=== PATIENT | female | born 1990 | race African-American/Black ===

== ENCOUNTER 2019-04-10 08:59 | Emergency (ER) | payer OTHER ==
[~2019-04-10] VITALS: Ht 177.8 cm; Wt 84.6 kg
[2019-04-10 09:07] VITALS: Ht 177.8 cm; Wt 84.6 kg
[2019-04-10 10:15] VITALS: BP 115/78
== END 2019-04-10 10:15 | disposition home or self-care (01) ==
LOC: ED 08:59
DX: B34.9 Viral infection, unspecified (principal)

== ENCOUNTER 2019-04-27 15:36 | Emergency (ER) | payer OTHER ==
[~2019-04-27] VITALS: Ht 177.8 cm; Wt 81.2 kg
[2019-04-27 15:45] VITALS: Ht 177.8 cm; Wt 81.2 kg
[2019-04-27 18:16] VITALS: BP 103/69
== END 2019-04-27 18:16 | disposition home or self-care (01) ==
LOC: ED 15:36
DX: S83.91XA Sprain of unspecified site of right knee, initial encounter (principal); X58.XXXA Exposure to other specified factors, initial encounter; Y93.89 Activity, other specified; Y92.89 Other specified places as the place of occurrence of the external cause; Y99.8 Other external cause status